=== PATIENT | female | born 1975 | race Caucasian/White ===

== ENCOUNTER 2019-05-11 09:12 | Day surgery (SDC) | payer OTHER ==
[2019-05-07 15:12] VITALS: BMI 26.2
[2019-05-11] MEDS ORDERED: MIDAZOLAM HCL 2 MG/2 ML SINGLE DOSE VIAL ONE ×2 (10:43→11:19)
[2019-05-11] MEDS ORDERED: PROPOFOL 20 ML ONE (10:43)
[2019-05-11] MEDS ORDERED: DEXAMETHASONE SOD PHOSPHATE 4 MG/1 ML VIAL ONE (10:44)
[2019-05-11] MEDS ORDERED: ceFAZolin SODIUM 1 GM VIAL IVPB ONE (11:18)
[2019-05-11] MEDS ORDERED: ceFAZolin SODIUM 1 GM VIAL ONE (11:22)
--- NOTE | 2019-05-11 11:34 | OP ---
Operative Note - Note: Operative Date: 05/11/19 Pre-Operative Diagnosis: Right renal stone Operation: right ESWL Findings: Right 5 mm stone Post-Operative Diagnosis: Same as Pre-op Surgeon: Bertin Crow MD. Anesthesia: General Operative Report Dictated: Yes
[2019-05-11] MEDS ORDERED: ONDANSETRON 4 MG/2 ML VIAL IVPUSH PRN (11:45)
[2019-05-11] MEDS ORDERED: ACETAMINOPHEN 325 MG TABLET (FP) PO PRN (11:45)
[2019-05-11] MEDS ORDERED: ELECTROLYTE-148 SOLN 1,000 ML IV SCH (11:45)
[2019-05-11] MEDS ORDERED: oxyCODONE HCL 5 MG TABLET PO PRN (11:45)
[2019-05-11 12:24] VITALS: TEMP 97.4
[2019-05-11 13:20] VITALS: BP 107/54; PULSE 79
--- NOTE | 2019-05-11 19:40 | OP ---
DATE OF OPERATION: 05/11/2019 PREOPERATIVE DIAGNOSIS: Right renal calculus. POSTOPERATIVE DIAGNOSIS: Right renal calculus. PROCEDURE: Right lithotripsy. HISTORY: This is a very pleasant 44-year-old female with history of prior renal calculi. Preoperative imaging was found to have recurrent 6-mm renal calculus. Risks and benefits of treatment options were discussed with the patient including observation. Patient agreed to undergo the above stated procedure. All questions answered. BRIEF OPERATIVE NOTE: The patient is brought in the operating room, placed in supine position. The stone was visualized using first ultrasonography and then fluoroscopy. A timeout was performed. At this time, patient was given intravenous antibiotics and the sedation. Approximately 2500 shocks were then delivered at the localized position of the stone. Patient tolerated procedure well and was transferred to recovery room in stable and satisfactory condition. DANN BENNETT M.D. [id number]
== END 2019-05-11 13:52 | disposition home or self-care (01) ==
LOC: JASU-SURG 09:12
PROVIDERS: ATTEND Urology
PROC: 0TF3XZZ Fragmentation in Right Kidney Pelvis, External Approach (ICD-10-PCS; principal; 2019-05-11 11:00)
DX: N20.0 Calculus of kidney (principal); J45.909 Unspecified asthma, uncomplicated; K21.9 Gastro-esophageal reflux disease without esophagitis
CPT/HCPCS: 84703

== ENCOUNTER 2019-05-11 18:55 | Emergency (ER) | payer OTHER ==
[2019-05-11 19:08] VITALS: TEMP 98.8; BMI 26.2
[2019-05-11] MEDS ORDERED: SODIUM CHLORIDE 1,000 ML IV STA (19:10)
[2019-05-11] MEDS ORDERED: ONDANSETRON 4 MG/2 ML VIAL IVPUSH STA (19:10)
[2019-05-11] MEDS ORDERED: KETOROLAC TROMETHAMINE 30 MG/1 ML VIAL IVPUSH ONE (19:14)
[2019-05-11] MEDS ORDERED: ONDANSETRON 4 MG/2 ML VIAL ONE (19:23)
[2019-05-11] MEDS ORDERED: KETOROLAC TROMETHAMINE 30 MG/1 ML VIAL ONE (19:23)
--- NOTE | 2019-05-11 19:39 | PDOC ---
Attending Attestation - Resident Resident Name: SamuelNeal - ED Attending Attestation I have performed the following: I have examined & evaluated the patient, The case was reviewed & discussed with the resident, I agree w/resident's findings & plan, Exceptions are as noted - HPI HPI: 05/11/19 19:39 This 44-year-old female had a lithotripsy done earlier today by Dr. Crow for a 5 mm right-sided stone. She now presents with severe pain nausea and vomiting - Physicial Exam PE: 05/11/19 19:40 44-year-old female presents in distress with right-sided flank pain associated with nausea and vomiting status post a lithotripsy today Head normocephalic atraumatic Neck is supple Lungs are clear to auscultation bilaterally CVS is regular rate and rhythm S1-S2 Abdomen there is no abdominal guarding Right CVA tenderness Skin warm and dry Neuro alert and oriented x3 - Medical Decision Making 05/11/19 20:33 Creatinine 0.9 CBC shows a slight leukocytosis of 12,000 Glucose is 148 Patient does not have any fevers at this time EKG is normal sinus rhythm at 87 bpm with some nonspecific ST abnormalities, QTC is 488 ms 05/11/19 21:[address] Crow who wanted patient placed on IV antibiotics and given RX for bactrim then he will see her in the office first thing in the morning Pt informed to call Dr Crow He will see her at [address] at 9 AM 05/11/19 22:11
[2019-05-11 19:51] LABS: BASO % 0.3 % (0-2.0); HEMATOCRIT 42.1 % (32.4-45.2); LYMPH % 4.5 % (8-40); MCH 30.6 pg (25.7-33.7); MCHC 33.4 g/dl (32.0-36.0); MEAN CELL VOLUME 91.7 fl (80-96); MEAN PLT VOLUME 8.7 fl (7.5-11.1); MONO % 2.3 % (3.8-10.2); NEUT % 92.9 % (42.8-82.8); PLATELET COUNT 240 K/MM3 (134-434); RBC 4.59 M/mm3 (3.60-5.2)
--- NOTE | 2019-05-11 19:58 | PDOC ---
History of Present Illness - General Chief Complaint: Pain, Acute Stated Complaint: ABD PAIN Time Seen by Provider: 05/11/19 19:08 History Source: Patient Exam Limitations: No Limitations - History of Present Illness Initial Comments: 44 yo F with a hx of nephrolithiasis with lithotripsy performed today by Dr. Crow (5 mm right sided stone) presents to the emergency department with right sided flank pain with the following associative symptoms: nausea and vomiting. Per the patient, the pain is intermittent, 10/10, located in the right flank region without relieving or aggravating symptoms. It was sudden onset of pain at approximately 2 pm, in which a lithotripsy was performed earlier in the AM. Allergies: NKDA Past History - Past Medical History Allergies/Adverse Reactions: Allergies Allergy/AdvReac Type Severity Reaction Status Date / Time No Known Allergies Allergy Verified 05/11/19 19:03 Home Medications: Ambulatory Orders Esomeprazole Magnesium [Nexium 24Hr] 20 mg PO PRN 05/07/19 Sulfamethoxazole/Trimethoprim [Bactrim Ds -] 1 tab PO BID #10 tablet 05/11/19 Anemia: No Asthma: Yes Cancer: No Cardiac Disorders: No CVA: No COPD: No CHF: No Dementia: No Diabetes: Yes (DURING ) GI Disorders: No Disorders: Yes (KIDNEY STONES) HTN: No Hypercholesterolemia: No Liver Disease: No Seizures: No Thyroid Disease: No - Psycho Social/Smoking Cessation Hx Smoking History: Never smoked Have you smoked in the past 12 months: No Information on smoking cessation initiated: No Hx Alcohol Use: No Drug/Substance Use Hx: No Hx Substance Use Treatment: No Review of Systems - Review of Systems Able to Perform ROS?: Yes Is the patient limited Georgian proficient: No Constitutional: No: Chills, Diaphoresis, Fever, Weakness HEENTM: No: Eye Pain, Ear Pain, Nose Pain, Throat Pain, Mouth Pain Respiratory: No: Cough, Shortness of Breath, Hemoptysis Cardiac (ROS): No: Chest Pain, Lightheadedness, Palpitations, Syncope, Chest Tightness ABD/GI: No: Constipated, Diarrhea, Nausea, Rectal Bleeding, Vomiting, Tarry Stools : Yes: Flank Pain (right). No: Burning, Dysuria, Hematuria, Incontinence Musculoskeletal: No: Back Pain, Joint Pain, Neck Pain Integumentary: No: Bruising, Erythema, Rash Neurological: No: Headache, Numbness, Tingling, Tremors Psychiatric: No: Change in Appetite Endocrine: No: Unexplained Weight Gain Hematologic/Lymphatic: No: Anemia *Physical Exam - Vital Signs Last Vital Signs Temp Pulse Resp BP Pulse Ox 98.8 F 102 H 20 132/78 98 05/11/19 19:04 05/11/19 19:04 05/11/19 19:04 05/11/19 19:04 05/11/19 19:04 - Physical Exam General Appearance: Yes: Nourished, Appropriately Dressed. No: Apparent Distress, Intoxicated HEENT: positive: EOMI, DREW, Normal Voice, Symmetrical, Pharynx Normal, Hearing Grossly Normal. negative: Pale Conjunctivae, Scleral Icterus (R), Scleral Icterus (L), Muffled/Hoarse voice, Pharyngeal Erythema, Tonsillar Exudate, Tonsillar Erythema, Nasal Congestion, Rhinorrhea, Sinus Tenderness, Excessive drooling Neck: positive: Trachea midline, Supple. negative: Tender, Lymphadenopathy (R) , Lymphadenopathy (L), Tender lateral, Tender midline Respiratory/Chest: positive: Lungs Clear, Normal Breath Sounds. negative: Chest Tender, Respiratory Distress, Accessory Muscle Use, Rhonchi, Stridor, Wheezing Cardiovascular: positive: Regular Rhythm, Regular Rate, S1, S2. negative: Systolic Murmur Gastrointestinal/Abdominal: positive: Normal Bowel Sounds, Flat, Soft. negative : Tender Lymphatic: negative: Adenopathy Musculoskeletal: positive: Normal Inspection, CVA Tenderness (R). negative: Vertebral Tenderness Extremity: positive: Normal Capillary Refill, Normal Inspection, Normal Range of Motion. negative: Tender, Pedal Edema, Swelling, Calf Tenderness Integumentary: positive: Normal Color, Dry, Warm. negative: Swelling, Ecchymosis Neurologic: positive: audio visual manager II-XII NML intact, Fully Oriented, Alert, Normal Mood/ Affect, Normal Response, Motor Strength 11/22 ED Treatment Course - LABORATORY CBC & Chemistry Diagram: 05/11/19 19:20 05/11/19 19:20 - Medications Given in the ED: ED Medications Discontinued Medications Generic Name Dose Route Start Last Admin Trade Name Freq PRN Reason Stop Dose Admin Ketorolac Tromethamine 30 mg 05/11/19 19:14 05/11/19 19:31 Toradol Injection - IVPUSH 05/11/19 19:15 30 mg ONCE ONE Administration Ondansetron HCl 4 mg 05/11/19 19:10 05/11/19 19:31 Zofran Injection IVPUSH 05/11/19 19:11 4 mg ONCE STA Administration Medical Decision Making - Medical Decision Making 44 yo F with a hx of nephrolithiasis with lithotripsy performed today by Dr. Crow (5 mm right sided stone) presents to the emergency department with right sided flank pain with the following associative symptoms: nausea and vomiting Initial vitals: Initial Vital Signs Temp Pulse Resp BP Pulse Ox 98.8 F 102 H 20 132/78 98 05/11/19 19:04 05/11/19 19:04 05/11/19 19:04 05/11/19 19:04 05/11/19 19:04 Work up: patient presents after a lithotripsy procedure earlier in the AM. ascertain if there is an infection in work up Laboratory Tests 05/11/19 05/11/19 05/11/19 19:20 19:20 19:40 WBC 12.0 H RBC 4.59 Hgb 14.0 Hct 42.1 MCV 91.7 MCH 30.6 MCHC 33.4 RDW 13.0 Plt Count 240 MPV 8.7 Absolute Neuts (auto) 11.2 H Neutrophils % 92.9 H Neutrophils % (Manual) 87.0 H Band Neutrophils % 5.0 Lymphocytes % 4.5 L Lymphocytes % (Manual) 5.0 L Monocytes % 2.3 L Monocytes % (Manual) 1 L Eosinophils % 0.0 Eosinophils % (Manual) 0.0 Basophils % 0.3 Basophils % (Manual) 0.0 Myelocytes % (Man) 0 Promyelocytes % (Man) 0 Blast Cells % (Manual) 0 Nucleated RBC % 0 Metamyelocytes 0 Platelet Estimate Normal Platelet Comment No clumping noted Sodium 139 Potassium 3.8 Chloride 107 Carbon Dioxide 22 Anion Gap 10 BUN 15.0 Creatinine 0.9 Est GFR (CKD-EPI)AfAm 88.87 Est GFR (CKD-EPI)NonAf 76.68 Random Glucose 148 H Calcium 9.1 Total Bilirubin 0.3 AST 19 ALT 38 Alkaline Phosphatase 75 Total Protein 7.6 Albumin 4.2 Urine Color Yellow Urine Appearance Cloudy Urine pH 5.0 Ur Specific Mathews 1.034 Urine Protein 1+ H Urine Glucose (UA) Negative Urine Ketones 1+ H Urine Blood 3+ H Urine Nitrite Negative Urine Bilirubin Negative Urine Urobilinogen 0.2 Ur Leukocyte Esterase Negative Urine WBC (Auto) 3 Urine RBC (Auto) 4.6 Urine Casts (Auto) 7 U Epithel Cells (Auto) 4.2 Urine Crystals (Auto) Moderate Urine Bacteria (Auto) 38.9 Dr. Gutierrez spoke to Dr. Crow who stated the patient to be placed on gram negative coverage IV abx and to be given prescription for bactrim. has an appointment arranged for her at 9 am the next day. The patient's pain was managed well with tylenol and toradol. Patient was given 1x dose of zosyn. Dispo: Discharge Discharge - Discharge Information Problems reviewed: Yes Clinical Impression/Diagnosis: Nephrolithiasis Condition: Good Disposition: HOME - Admission No - Additional Discharge Information Prescriptions: Sulfamethoxazole/Trimethoprim [Bactrim Ds -] 1 tab PO BID #10 tablet - Follow up/Referral Referrals: ON STAFF,NOT [Primary Care Provider] - Bertin Crow MD., [Staff Physician] - [facility] [Provider Group] - Patient Discharge Instructions Patient Printed Discharge Instructions: DI for Kidney Stones Additional Instructions: you were seen in the emergency department for your flank pain. please follow up with your urologist within 1 week after discharge. please take the antibiotics for the urinary tract infection. please return if you have worsening symptoms. thank you. - Post Discharge Activity
[2019-05-11 20:06] LABS: ALBUMIN 4.2 g/dl (3.4-5.0); BILIRUBIN,TOTAL 0.3 mg/dL (0.2-1); CALCIUM 9.1 mg/dL (8.5-10.1); CREATININE 0.9 mg/dL (0.55-1.3); POTASSIUM 3.8 mmol/L (3.5-5.1); TOT PROT 7.6 g/dl (6.4-8.2)
[2019-05-11 20:11] LABS: EPI CELLS 4.2 /HPF (0-5/HPF); HYALINE CASTS 7 /lpf (0-8); URINE APPEARANCE CLOUDY; URINE BACTERIA 38.9 /hpf (NEGATIVE); URINE BILIRUBIN NEGATIVE (NEGATIVE); URINE COLOR YELLOW; URINE GLUCOSE (UA) NEGATIVE (NEGATIVE); URINE KETONE 1+ (NEGATIVE); URINE LEUK ESTERASE NEGATIVE (NEGATIVE); URINE NITRITE NEGATIVE (NEGATIVE); URINE PROTEIN 1+ (NEGATIVE); URINE UROBILINOGEN 0.2 mg/dL (0.2-1.0); URINE WBC 3 /hpf (0-5)
[2019-05-11] MEDS ORDERED: ACETAMINOPHEN 1000 MG/100 ML VIAL (NON FORMULARY) IVPB ONE (20:20)
[2019-05-11 20:31] LABS: PLATELET ESTIMATE NORMAL
[2019-05-11] MEDS ORDERED: ACETAMINOPHEN INJECTION 100 ML IVPB ONE (20:39)
[2019-05-11] MEDS ORDERED: PIPERACILLIN/TAZOB 3.375 GM 3.375 GM in DEXTROSE 5%-WATER - 50 ML IVPB ONE (21:46)
[2019-05-11] MEDS ORDERED: PIPERACILLIN/TAZOB 3.375 GM 3.375 GM/50 ML BAG IVPB ONE (21:49)
[2019-05-11 22:01] LABS: URINE CRYSTALS MODERATE /hpf; URINE RBC 4.6 /hpf (0-4)
[2019-05-11 23:10] VITALS: BP 117/76; PULSE 80
--- NOTE | 2019-05-12 09:54 | EKG ---
Test Reason : Blood Pressure : / mmHG Vent. Rate : 087 BPM Atrial Rate : 087 BPM P-R Int : 132 ms QRS Dur : 090 ms QT Int : 406 ms P-R-T Axes : 056 067 048 degrees QTc Int : 488 ms POOR DATA QUALITY, INTERPRETATION MAY BE ADVERSELY AFFECTED NORMAL SINUS RHYTHM NONSPECIFIC T WAVE ABNORMALITY ABNORMAL ECG NO PREVIOUS ECGS AVAILABLE Confirmed by CLAUDE LUNA, AALIYAH ([id number]) on 05/12/2019 9:53:33 AM Referred By: Confirmed By:AALIYAH ARCE MD
== END 2019-05-11 23:23 | disposition home or self-care (01) ==
LOC: JER 18:55
PROC: 3E0337Z Introduction of Electrolytic and Water Balance Substance into Peripheral Vein, Percutaneous Approach (ICD-10-PCS; principal; 2019-05-11)
PROC: 3E03329 Introduction of Other Anti-infective into Peripheral Vein, Percutaneous Approach (ICD-10-PCS; 2019-05-11)
PROC: 3E033GC Introduction of Other Therapeutic Substance into Peripheral Vein, Percutaneous Approach (ICD-10-PCS; 2019-05-11)
PROC: 3E033NZ Introduction of Analgesics, Hypnotics, Sedatives into Peripheral Vein, Percutaneous Approach (ICD-10-PCS; 2019-05-11)
PROC: 3E0333Z Introduction of Anti-inflammatory into Peripheral Vein, Percutaneous Approach (ICD-10-PCS; 2019-05-11)
DX: N20.0 Calculus of kidney (principal); Z98.890 Other specified postprocedural states
CPT/HCPCS: 36415; 80053; 81003; 85025; 87086; 93005; 93010; 96361; 96365; 96375; 99283-25; J0131; J7030

== ENCOUNTER 2021-04-23 11:53 | Emergency (ER) | payer OTHER ==
[2021-04-23 12:08] VITALS: BP 148/89; PULSE 109; TEMP 98.6; BMI 27.3
[2021-04-23] MEDS ORDERED: KETOROLAC TROMETHAMINE 30 MG/1 ML VIAL IM ONE (13:46)
[2021-04-23 13:49] LABS: EPI CELLS >36 /uL (0-25.1); HYALINE CASTS 7 /uL (0-3.1); PH,URINE 5.5 (5.0-8.0); URINE APPEARANCE CLOUDY; URINE BACTERIA 1079 /uL (0-1359); URINE BILIRUBIN NEGATIVE (NEGATIVE); URINE COLOR YELLOW; URINE GLUCOSE (UA) NEGATIVE (NEGATIVE); URINE KETONE TRACE (NEGATIVE); URINE LEUK ESTERASE 2+ (NEGATIVE); URINE NITRITE NEGATIVE (NEGATIVE); URINE PROTEIN TRACE (NEGATIVE); URINE RBC 37 /uL (0-23.9); URINE UROBILINOGEN 0.2 mg/dL (0.2-1.0); URINE WBC 323 /uL (0-25.8)
[2021-04-23] MEDS ORDERED: KETOROLAC TROMETHAMINE 30 MG/1 ML VIAL ONE (13:53)
== END 2021-04-23 14:06 | disposition home or self-care (01) ==
LOC: JER 11:53
PROC: 3E0233Z Introduction of Anti-inflammatory into Muscle, Percutaneous Approach (ICD-10-PCS; principal; 2021-04-23)
DX: N20.0 Calculus of kidney (principal)
CPT/HCPCS: 81003; 87086; 99284-25